=== PATIENT | female | born 1990 | race Hispanic/Latino ===

== ENCOUNTER 2017-04-03 00:02 | Emergency (ER) | payer OTHER ==
[2017-04-03] MEDS ORDERED: PRENTAB55 PO (00:10)
[2017-04-03] MEDS ORDERED: NS 1,000 ML IV ONE (01:15)
[2017-04-03 01:27] LABS: BASO % 0.2 % (0.0-1.0); EOS # 0.1 K/mm3 (0.0-0.50); EOS % 1.1 % (0.0-3.0); LARGE UNSTAINED CELL # 0.1 K/mm3 (0.0-0.4); LARGE UNSTAINED CELL % 0.8 % (0.0-4.0); LYMPH # 1.1 K/mm3 (1.5-6.5); LYMPH % 12.9 % (24.0-44.0); MEAN CORPUSCULAR HEMOGLOBIN 28.2 pg (27.0-33.0); MEAN CORPUSCULAR HGB CONC 35.1 g/dl (32.0-36.5); MEAN CORPUSCULAR VOLUME 80.3 fl (80.0-96.0); MONO # 0.2 K/mm3 (0.0-0.8); MONO % 2.4 % (0.0-5.0); NEUTROPHILS # 7.3 K/mm3 (1.8-7.7); NEUTROPHILS % 82.6 % (36.0-66.0); PLATELET COUNT, AUTOMATED 227 k/mm3 (150-450); RED CELL DISTRIBUTION WIDTH 13.9 % (11.5-14.5); WHITE BLOOD COUNT 8.8 K/mm3 (4.0-10.0)
[2017-04-03] MEDS ORDERED: ACETAMINOPHEN TAB 650MG DOSE (2X325MG) PO ONE (01:30)
[2017-04-03] MEDS ORDERED: METOCLOPRAMIDE INJ 10MG/2ML VIAL (J2765) IV ONE (01:30)
[2017-04-03 01:48] LABS: ALBUMIN 2.9 GM/DL (3.2-5.2); ALBUMIN/GLOBULIN RATIO 0.78 (1.00-1.93); ALKALINE PHOSPHATASE 70 U/L (45-117); ALT/SGPT 20 U/L (12-78); ANION GAP 9 MEQ/L (8-16); AST/SGOT 15 U/L (15-37); BILIRUBIN,DIRECT < 0.1 MG/DL (0.0-0.2); BILIRUBIN,TOTAL 0.5 MG/DL (0.2-1.0); BLOOD UREA NITROGEN 5 MG/DL (7-18); CALCIUM LEVEL 8.7 MG/DL (8.5-10.1); CARBON DIOXIDE LEVEL 25 MEQ/L (21-32); CHLORIDE LEVEL 102 MEQ/L (98-107); CREATININE FOR GFR 0.59 MG/DL (0.55-1.02); GLOMERULAR FILTRATION RATE > 60.0 (>60); GLUCOSE, FASTING 98 MG/DL (70-105); POTASSIUM SERUM 3.7 MEQ/L (3.5-5.1); SODIUM LEVEL 136 MEQ/L (136-145); TOTAL PROTEIN 6.6 GM/DL (6.4-8.2)
[2017-04-03] MEDS ORDERED: MACR100C43 PO (03:30)
[2017-04-03 03:50] VITALS: BP 101/62
== END 2017-04-03 03:52 | disposition home or self-care (01) ==
LOC: M ED 00:02
DX: O21.9 Vomiting of pregnancy, unspecified (principal); O23.42 Unspecified infection of urinary tract in pregnancy, second trimester; Z3A.25 25 weeks gestation of pregnancy
CPT/HCPCS: 80048; 80076; 81001; 83690; 85025; 87086; 96361; 96374; 99284; J2765

== ENCOUNTER 2017-07-13 20:25 | Outpatient (CLI) | payer OTHER ==
[~2017-07-13] VITALS: Ht 172.7 cm; Wt 95.0 kg
[~2017-07-13 20:25] MED LIST: MACR100C43 PO; PRENTAB55 PO
== END 2017-07-13 22:15 | disposition home or self-care (01) ==
LOC: M LDO 20:25
PROVIDERS: ATTEND Obstetrics & Gynecology
DX: O47.1 False labor at or after 37 completed weeks of gestation (principal); Z3A.40 40 weeks gestation of pregnancy

== ENCOUNTER 2017-07-14 03:35 | Inpatient (IN) | payer OTHER ==
[2017-07-14] VITALS (16 sets, daily range): BP systolic 106–136; BP diastolic 57–82
[~2017-07-14] VITALS: Ht 172.7 cm; Wt 95.0 kg
[2017-07-14] MEDS ORDERED: LR 1,000 ML IV SCH (04:17)
[2017-07-14] MEDS ORDERED: LACTATED RINGER'S 1000 ML IV STA (04:17)
--- NOTE | 2017-07-14 04:38 | HPEPDOC ---
Obstetrical History & Physical General Date of Admission History of Present Illness 26 y/o at 40+1 by LMP and 8 wk US with reg painful ctx's, seen earlier and sent home in latent labor. Now ~6-7 hrs and have not slowed down and are hurting worse. No VB/LOF. Pos FM. Prob list: Quad screen pos, [place] neg Hgb C trait, husb with neg hgb electrophoresis Information Provided By: Patient Care Care: Good Care Dating Final EDC by: LMP, 1st trimester (US) Past Medical History Past Obstetrical History : Past Obstetrical History: Primgravida Past Medical History Medical History denies Surgical History: Denies/None Family History Significant Family History: No pertinent family hx Social History Marital Status: Family situation: Spouse/partner home Psychosocial History: No pertinent psych hx * Smoker: non-smoker Alcohol: Denies Drugs: denies Abuse Violence Screening Have you been hit/kicked/slapp: No Have you been sexually assault: No Imunizations Tdap status: current Influenza Status: current Allergies Coded Allergies: No Known Allergies (Unverified , 04/03/17) Medications Scheduled Multivitamins/ ( 19) 1 Tab Tab, 1 TAB PO DAILY Physical Examination Physical Examination GENERAL: Alert and oriented times three. ABDOMEN: Gravid and non-tender to touch. FETUS: Is vertex (VTX) by sterile vaginal examination (SVE) 4-5/90/-2/vtx well applied EXTREMITIES: No edema. Laboratory Data Urine Culture: No Growth Pertinent Laboratoy Data Blood Type: O+ RBC Antibody Screen: Negative HIV: Negative Hepatitis B: Negative Hepatitis C: Unknown Rapid Plasma Reagin: Nonreactive Rubella: Immune Varicella: Immune Chlamydia/Gonorrhea: Negative Group B Streptococcus: Negative Quad Screen Test: Positive (MFM consult done, see hard chart) Cystic Fibrosis: Negative Glucose Tolerance Test: 99 Anatomy Ultrasound Ultrasound Date: February 14, 2017 Placenta Location: Anterior Normal Anatomy: No (CP cysts) Placenta Previa: No Other Ultrasounds 9jun mfm report and US reviewed 29aug nl adin and neg for CP cysts, 56%ile Steroid Therapy Steroid Therapy: No Assessment Variability: Moderate Accelerations: Positive Decelerations: None Tocometer Contractions: Yes Frequency: regular Duration: greater than 60 seconds Strength: palpated as moderate Assessment/Plan Assessment Active labor Plan Admit and orient. Cardiothoracic Icu Rn and consent. Diet: clrs Group B Streptococcus (GBS) neg Labs and intravenous (IV) per unit protocol. Counseled on Pitocin and induction of labor (IOL). Lactated Ringers (LR): [id number] mL prior to desired epidural, then at 125 mL/ hr. Anticipate normal spontaneous delivery () C-S as appropriate. Sessions MD SESSIONS,LEANDRA العراقي MD Jul 14, 2017 04:38
[2017-07-14 04:48] LABS: MEAN CORPUSCULAR HEMOGLOBIN 26.9 pg (27.0-33.0); MEAN CORPUSCULAR HGB CONC 35.7 g/dl (32.0-36.5); MEAN CORPUSCULAR VOLUME 75.3 fl (80.0-96.0); RED CELL DISTRIBUTION WIDTH 13.9 % (11.5-14.5)
[2017-07-14] MEDS ORDERED: FENTANYL 2MCG/ML ROPIVACAINE 0.2% IN 0.9% NACL 200ML IVBAG As Ordered ONE (05:11)
[2017-07-14] MEDS ORDERED: REFRIGERATOR IV KEYS XX PRN (07:15)
[2017-07-14] MEDS ORDERED: diphenhydrAMINE INJ 50MG/ML VIAL (J1200) IV PRN (07:15)
[2017-07-14] MEDS ORDERED: EPIDURAL/PCA KEYS XX PRN (07:15)
[2017-07-14] MEDS ORDERED: FENTANYL/ROPIVACAINE/NACL BAG 200 ML EPIDURAL SCH (07:15)
[2017-07-14] MEDS ORDERED: ePHEDrine SULFATE 25 MG/5 ML(5MG/ML) SYRINGE IV PRN (07:15)
[2017-07-14] MEDS ORDERED: NALOXONE INJ 0.4 MG/1 ML VIAL (J2310) IV PRN (07:15)
[2017-07-14] MEDS ORDERED: EPIDURAL COMMENT XX SCH (07:15)
[2017-07-14] MEDS ORDERED: ONDANSETRON 4MG/2ML VIAL (J2405) IV PRN ×2 (07:15→11:45)
[2017-07-14] MEDS ORDERED: LACTATED RINGER'S 1000 ML IV PRN (07:15)
[2017-07-14] MEDS ORDERED: CALCIUM CARBONATE 500 MG CHEW U/D PO ONE (09:00)
[2017-07-14] MEDS ORDERED: OXYTOCIN 30 UNITS IN 0.9% NaCl 500ML IV BAG (J2590) As Ordered ONE (10:45)
[2017-07-14] MEDS ORDERED: OXYTOCIN DRIP 30 UNITS in APPROPRIATE DILUENT 1 EA IV SCH (11:43)
[2017-07-14] MEDS ORDERED: MEASLES,MUMPS,RUBELLA VACCINE INJ (MMR-II) (90707) SC SCH (11:45)
[2017-07-14] MEDS ORDERED: METHYLERGONOVINE MALEATE 0.2 MG/ML VIAL (J2210) IM PRN (11:45)
[2017-07-14] MEDS ORDERED: RHOGAM 300 MCG (1500 IU) INJ (J2790) IM SCH (11:45)
[2017-07-14] MEDS ORDERED: ACETAMINOPHEN 500 MG TAB PO PRN (11:45)
[2017-07-14] MEDS ORDERED: PROMETHAZINE 25 MG TAB PO PRN (11:45)
[2017-07-14] MEDS ORDERED: DIBUCAINE 1% OINTMENT 30GM TOP PRN (11:45)
[2017-07-14] MEDS: PRENATAL VITAMINS CHEWABLE TABLET PO SCH (14:30)
[2017-07-14] MEDS: IBUPROFEN 800 MG TAB PO PRN ×2 (14:39→22:37)
[2017-07-14] MEDS: DOCUSATE SODIUM 100 MG CAP PO SCH (22:37)
[2017-07-15 05:57] VITALS: BP 129/79
[2017-07-15] MEDS: DOCUSATE SODIUM 100 MG CAP PO SCH ×2 (10:50→20:25)
[2017-07-15] MEDS: PRENATAL VITAMINS CHEWABLE TABLET PO SCH (10:50)
[2017-07-15] MEDS: IBUPROFEN 800 MG TAB PO PRN ×2 (10:50→20:24)
[2017-07-15 18:08] VITALS: BP 120/68
[2017-07-16 06:00] VITALS: BP 110/55
--- NOTE | 2017-07-16 07:44 | IPNPDOC ---
Text Note Date of Service The patient was seen on 07/16/17. NOTE PPD#2 s/p S: Pt doing well. Pain well controlled, lochia minimal, voiding spontaneously without problem, tolerating a regular diet, ambulating without difficulty. No f /c/n/v/BREAUX/CP/SOB. Breast feeding without problem. O: normotensive, nml HR, afebrile H: RRR no m/g/r L: CTA b/l no w/c/r/r Abd: soft, appropriately tender, and FF at U-2/fundus nontender Ext: no c/c/e A/P: S/p , PPD#1. Hemodynamically stable, afebrile, good pain control. -discharge to home today -routine 6wk visit -has home meds: motrin, tylenol, colace, lanolin -return precautions discussed at length Dr. Padmini Haque ([facility])MD VS,Joseph, I+O VSJoseph, I+O Vital Signs Date Time Temp Pulse Resp B/P (MAP) Pulse Ox O2 Delivery O2 Flow Rate FiO2 07/16/17 06:00 98.7 63 18 110/55 (73) 07/15/17 05:57 97 Room Air PADMINI HAQUE MD Jul 16, 2017 07:44
[2017-07-16] MEDS: PRENATAL VITAMINS CHEWABLE TABLET PO SCH (09:09)
[2017-07-16] MEDS: DOCUSATE SODIUM 100 MG CAP PO SCH (09:09)
[2017-07-16] MEDS: IBUPROFEN 800 MG TAB PO PRN (09:09)
[2017-07-16] MEDS ORDERED: COLA100C5 PO (12:33)
[2017-07-16] MEDS ORDERED: ACET50TA PO (12:33)
[2017-07-16] MEDS ORDERED: ADVI200C5 PO (12:33)
== END 2017-07-16 15:00 | disposition home or self-care (01) | DRG 775 ==
LOC: M LDO 03:35 → M LDI 04:35 → M OBS 14:10
PROVIDERS: ADMIT Obstetrics & Gynecology; ATTEND Obstetrics & Gynecology
PROC: 10E0XZZ Delivery of Products of Conception, External Approach (ICD-10-PCS; principal; 2017-07-14)
PROC: 0KQM0ZZ Repair Perineum Muscle, Open Approach (ICD-10-PCS; 2017-07-14)
PROC: 0HQ9XZZ Repair Perineum Skin, External Approach (ICD-10-PCS; 2017-07-14)
DX: O48.0 Post-term pregnancy (principal); Z3A.40 40 weeks gestation of pregnancy; O70.1 Second degree perineal laceration during delivery; Z37.0 Single live birth; O70.0 First degree perineal laceration during delivery